=== PATIENT | female | born 1935 | race Caucasian/White ===

== ENCOUNTER 2018-02-07 15:23 | Emergency (ER) | payer MEDICARE, OTHER ==
[2018-02-07] MEDS ORDERED: NS 0.9% 1000 ML* 1,000 ML IV SCH (16:15)
--- NOTE | 2018-02-07 16:49 | RAD ---
INDICATION: Hypertension COMPARISON: November 08, 2016 TECHNIQUE: An AP portable view obtained at 1635 hours is submitted. FINDINGS: Bones/Soft Tissues: There are no acute bony findings. There is sternotomy Cardiomediastinal: The cardiomediastinal silhouette is normal. Lungs: There is hyperinflation with chronic interstitial change. Pleura: There are no pleural effusions. Other: None IMPRESSION: HYPERINFLATION WITH CHRONIC INTERSTITIAL CHANGE
[2018-02-07 16:56] LABS: ABS Basophils 0 10^3/ul (0-0.2); ABS Eosinophils 0.2 10^3/ul (0-0.6); ABS Lymphocytes 1.4 10^3/ul (1.0-4.8); ABS Monocytes 0.6 10^3/ul (0-0.8); ABS Neutrophils 3.6 10^3/ul (1.5-7.7); ABS Nucleated RBC 0 10^3/ul; Eosinophil % 3.7 % (0-6); Hematocrit 32 % (35-47); Hemoglobin 10.9 g/dl (12.0-16.0); Lymphocyte % 23.4 % (25-47); Mean Corpuscular HGB Conc 34 g/dl (31-36); Mean Corpuscular Hemoglobin 35 pg (27-31); Mean Corpuscular Volume 102 fL (80-97); Nucleated Red Blood Cells % 0.1; Platelet Count 199 10^3/ul (150-450); Red Blood Count 3.15 10^6/ul (4.0-5.4); Red Cell Distribution Width 13 % (10.5-15); White Blood Count 5.9 10^3/ul (3.5-10.8)
[2018-02-07 17:07] LABS: INR 0.91 (0.77-1.02)
[2018-02-07 17:23] LABS: EGFR Non-African American 70.7 (>60)
--- NOTE | 2018-02-07 18:46 | ED ---
Boby Meza Jennifer, scribed for Wallace Rodriguez MD on 02/07/18 at 1650 . Hypertension - HPI Summary HPI Summary: The patient is an 82 y/o F who was recommended to the ED by her academic coach for headache and hypertension that began two hours ago. The patient states she was shopping when she felt a sudden onset headache that began from her eyes and radiated backwards into her skull. She describes the pain as aching and felt sick all over. She rates the pain as an 8/10 at its worst and states it lasted about 1.5 hours. The patient was accompanied by her friend who is a nurse and checked her blood pressure to find out it was uncharacteristically high. The patient additionally complains of blurry vision. She denies nausea, abdominal pain, and photophobia. - History of Current Complaint Chief Complaint: EDHypertension Stated Complaint: HEADACHE AND HIGH BLOOD PRESSURE PER HOME CHECK Time Seen by Provider: 02/07/18 16:43 Hx Obtained From: Patient Onset/Duration: Started Hours Ago - 2 hours, Resolved - Headache lasted 1.5 hours Timing: Constant Aggravating Factor(s): Nothing Alleviating Factor(s): Nothing Associated Signs & Symptoms: Other: - headache radiating from eyes to back of skull, high blood pressure, blurry vision. NEGATIVE: nausea, photophobia, abdominal pain - Allergies/Home Medications Allergies/Adverse Reactions: Allergies Allergy/AdvReac Type Severity Reaction Status Date / Time MS Lactose [Lactose] Allergy Unknown Unknown Verified 02/07/18 15:28 Reaction Details MS Pineapple [Pineapple] Allergy Unknown Unknown Verified 02/07/18 15:28 Reaction Details cactus Allergy Unknown Unknown Uncoded 02/07/18 15:28 Reaction Details potato Allergy Unknown Unknown Uncoded 02/07/18 15:28 Reaction Details Home Medications: Home Medications Aspirin EC TAB* [Ecotrin EC Low Dose 81 MG*] 81 mg PO DAILY 02/07/18 [History Confirmed 02/07/18] Cyclosporine 0.05% OPHTH (NF) [Restasis 0.05% OPHTH] 1 drop BOTH EYES DAILY [History Confirmed 02/07/18] Magnesium [Magnesium Elemental] 30 mg PO DAILY 02/07/18 [History Confirmed 02/07] Metoprolol Tartrate TAB* [Lopressor TAB*] 12.5 mg PO BID 02/07/18 [History Confirmed 02/07/18] Solifenacin(NF) [Vesicare(NF)] 5 mg PO MOWEFR 02/07/18 [History Confirmed ] Temazepam CAP* [Restoril CAP*] 15 mg PO MOWEFR 02/07/18 [History Confirmed 02/07] PMH/Surg Hx/FS Hx/Imm Hx Endocrine/Hematology History: Denies: Hx Diabetes Cardiovascular History: Reports: Hx Angina, Hx Hypercholesterolemia, Hx Valvular Heart Disease, Other Cardiovascular Problems/Disorders - recent dx afib Denies: Hx Coronary Artery Disease, Hx Hypertension, Hx Myocardial Infarction Respiratory History: Reports: Hx Sleep Apnea - current CPAP user, compliant Denies: Hx Asthma, Hx Chronic Obstructive Pulmonary Disease (COPD) History: Reports: Other Problems/Disorders - overactive bladder, on vesicare Musculoskeletal History: Reports: Hx Orthopedic Injury - rt ankle hx of simple fx with tx cast, Hx Osteoporosis Denies: Other Musculoskeletal History Sensory History: Reports: Hx Contacts or Glasses - with patient, Hx Hearing Aid - sent home with s/o. 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 - Surgical History Surgery Procedure, Year, and Place: 1955 [facility]- tonsils. [place] [facility] [place] breast [place]/ cyst removal. 2001 [place], [place]- basal cell carcinoma. 2011 [place] - benign lesion removal Hx Anesthesia Reactions: No - Immunization History Date of Tetanus Vaccine: UTD Date of Influenza Vaccine: NONE Infectious Disease History: No Infectious Disease History: Denies: Hx Shingles, Traveled Outside the [place] in Last 30 Days - Family History Known Family History: Negative: Renal Disease - Social History Alcohol Use: None Hx Substance Use: No Substance Use Type: Reports: None Hx Tobacco Use: No Smoking Status (MU): Never Smoked Tobacco Review of Systems Positive: Blurred Vision Positive: Other - Hypertension Negative: Abdominal Pain, Nausea Positive: Headache - radiating from eyes to back of skull All Other Systems Reviewed And Are Negative: Yes Physical Exam - Summary Physical Exam Summary: General: well-appearing, no pain distress Skin: warm, color reflects adequate perfusion, dry Head: normal Eyes: EOMI, MICHELLE ENT: normal Neck: supple, nontender Respiratory: CTA, breath sounds present Cardiovascular: RRR Abdomen: soft, nontender Bowel: present Musculoskeletal: normal, strength/ROM intact Neurological: sensory/motor intact, A&O x3 Psychological: affect/mood appropriate Triage Information Reviewed: Yes Vital Signs On Initial Exam: Initial Vitals Temp Pulse Resp BP Pulse Ox 98.1 F 76 16 157/94 99 02/07/18 15:28 02/07/18 15:28 02/07/18 15:28 02/07/18 15:28 02/07/18 15:28 Vital Signs Reviewed: Yes Diagnostics - Vital Signs Vital Signs Temp Pulse Resp BP Pulse Ox 02/07/18 15:28 98.1 F 76 16 157/94 99 - Laboratory Lab Results: Lab Results 02/07/18 02/07/18 02/07/18 Range/Units 16:46 16:46 16:46 WBC 5.9 (3.5-10.8) 10^3/ul RBC 3.15 L (4.0-5.4) 10^6/ul Hgb 10.9 L (12.0-16.0) g/dl Hct 32 L (35-47) % MCV 102 H (80-97) fL MCH 35 H (27-31) pg MCHC 34 (31-36) g/dl RDW 13 (10.5-15) % Plt Count 199 (150-450) 10^3/ul MPV 8.0 (7.4-10.4) um3 Neut % (Auto) 61.2 (38-83) % Lymph % (Auto) 23.4 L (25-47) % [place] % (Auto) 10.9 H (0-7) % Eos % (Auto) 3.7 (0-6) % Baso % (Auto) 0.8 (0-2) % Absolute Neuts (auto) 3.6 (1.5-7.7) 10^3/ul Absolute Lymphs (auto) 1.4 (1.0-4.8) 10^3/ul Absolute Monos (auto) 0.6 (0-0.8) 10^3/ul Absolute Eos (auto) 0.2 (0-0.6) 10^3/ul Absolute Basos (auto) 0 (0-0.2) 10^3/ul Absolute Nucleated RBC 0 10^3/ul Nucleated RBC % 0.1 INR (Anticoag Therapy) 0.91 (0.77-1.02) APTT 29.6 (26.0-36.3) seconds Sodium 138 L (139-145) mmol/L Potassium 3.8 (3.5-5.0) mmol/L Chloride 103 (101-111) mmol/L Carbon Dioxide 27 (22-32) mmol/L Anion Gap 8 (2-11) mmol/L BUN 20 (6-24) mg/dL Creatinine 0.78 (0.51-0.95) mg/dL Est GFR ( Amer) 90.9 (>60) Est GFR (Non-Af Amer) 70.7 (>60) BUN/Creatinine Ratio 25.6 H (8-20) Glucose 92 (70-100) mg/dL Lactic Acid (0.5-2.0) mmol/L Calcium 9.0 (8.6-10.3) mg/dL Magnesium 2.1 (1.9-2.7) mg/dL Total Bilirubin 0.40 (0.2-1.0) mg/dL AST 24 (13-39) U/L ALT 20 (7-52) U/L Alkaline Phosphatase 24 L (34-104) U/L Total Creatine Kinase 106 (10-223) U/L CK-MB (CK-2) 4.2 (0.6-6.3) ng/mL Troponin I 0.00 (<0.04) ng/mL C-Reactive Protein 3.03 (< 5.00) mg/L B-Natriuretic Peptide ( - 100) pg/mL Total Protein 6.1 L (6.4-8.9) g/dL Albumin 3.8 (3.2-5.2) g/dL Globulin 2.3 (2-4) g/dL Albumin/Globulin Ratio 1.7 (1-3) Lipase 22 (11.0-82.0) U/L TSH 2.99 (0.34-5.60) mcIU/mL 02/07/18 02/07/18 Range/Units 16:46 16:46 WBC (3.5-10.8) 10^3/ul RBC (4.0-5.4) 10^6/ul Hgb (12.0-16.0) g/dl Hct (35-47) % MCV (80-97) fL MCH (27-31) pg MCHC (31-36) g/dl RDW (10.5-15) % Plt Count (150-450) 10^3/ul MPV (7.4-10.4) um3 Neut % (Auto) (38-83) % Lymph % (Auto) (25-47) % [place] % (Auto) (0-7) % Eos % (Auto) (0-6) % Baso % (Auto) (0-2) % Absolute Neuts (auto) (1.5-7.7) 10^3/ul Absolute Lymphs (auto) (1.0-4.8) 10^3/ul Absolute Monos (auto) (0-0.8) 10^3/ul Absolute Eos (auto) (0-0.6) 10^3/ul Absolute Basos (auto) (0-0.2) 10^3/ul Absolute Nucleated RBC 10^3/ul Nucleated RBC % INR (Anticoag Therapy) (0.77-1.02) APTT (26.0-36.3) seconds Sodium (139-145) mmol/L Potassium (3.5-5.0) mmol/L Chloride (101-111) mmol/L Carbon Dioxide (22-32) mmol/L Anion Gap (2-11) mmol/L BUN (6-24) mg/dL Creatinine (0.51-0.95) mg/dL Est GFR ( Amer) (>60) Est GFR (Non-Af Amer) (>60) BUN/Creatinine Ratio (8-20) Glucose (70-100) mg/dL Lactic Acid 0.5 (0.5-2.0) mmol/L Calcium (8.6-10.3) mg/dL Magnesium (1.9-2.7) mg/dL Total Bilirubin (0.2-1.0) mg/dL AST (13-39) U/L ALT (7-52) U/L Alkaline Phosphatase (34-104) U/L Total Creatine Kinase (10-223) U/L CK-MB (CK-2) (0.6-6.3) ng/mL Troponin I (<0.04) ng/mL C-Reactive Protein (< 5.00) mg/L B-Natriuretic Peptide 187 H ( - 100) pg/mL Total Protein (6.4-8.9) g/dL Albumin (3.2-5.2) g/dL Globulin (2-4) g/dL Albumin/Globulin Ratio (1-3) Lipase (11.0-82.0) U/L TSH (0.34-5.60) mcIU/mL Result Diagrams: 02/07/18 16:46 02/07/18 16:46 Lab Statement: Any lab studies that have been ordered have been reviewed, and results considered in the medical decision making process. - Radiology CXR Xray Interpretation: Positive (See Comments) - HYPERINFLATION WITH CHRONIC INTERSTITIAL CHANGE. Dr. Rodriguez has reviewed this report. Radiology Interpretation Completed By: Radiologist - EKG 1616 Cardiac Rate: NL EKG Rhythm: Sinus Rhythm - [address] Segment: Non-Specific - Flipped T in V3 Ectopy: None EKG Interpretation: RBBB Re-Evaluation - Re-Evaluation First Eval Re-Evaluation Time: 16:54 Change: Unchanged Comment: The patient declined CT Head. Hypertension Course/Dx - Course Course Of Treatment: FORD GONE IN THE ED. BP IMPROVED. I PLANNED ON A HEAD CT; THE PATIENT DECLINED. DISCUSSED RESULTS WITHTHE PATIENT. F/U PMD; RETURN IF WORSE. - Diagnoses Provider Diagnoses: Headache, Hypertension Discharge - Sign-Out/Discharge Documenting (check all that apply): Discharge/Admit/Transfer - Discharge Plan Condition: Stable Disposition: HOME Patient Education Materials: Acute Headache (ED), Hypertension (ED) Referrals: Darrian Rodriguez MD [Primary Care Provider] - Additional Instructions: FOLLOW UP WITH YOUR DOCTOR. RETURN TO THE EMERGENCY DEPARTMENT FOR ANY WORSENING OF YOUR CONDITION; HEADACHE , WEAKNESS, YOU FEEL ILL OR QUESTIONS OR CONCERNS. - Billing Disposition and Condition Condition: STABLE Disposition: HOME The documentation as recorded by the Boby gaitan Jennifer accurately reflects the service I personally performed and the decisions made by me, Wallace Rodriguez MD.
[2018-02-07 19:27] VITALS: BP 127/74
== END 2018-02-07 19:28 | disposition home or self-care (01) ==
LOC: ED 15:23
DX: R51 Headache (principal); I10 Essential (primary) hypertension; Z79.82 Long term (current) use of aspirin; E78.00 Pure hypercholesterolemia, unspecified; I48.91 Unspecified atrial fibrillation; Z85.828 Personal history of other malignant neoplasm of skin; G47.30 Sleep apnea, unspecified; I45.10 Unspecified right bundle-branch block; R94.31 Abnormal electrocardiogram [ECG] [EKG]
CPT/HCPCS: 36415; 71045; 80053; 82550; 82553; 83605; 83690; 83735; 83880; 84443; 84484; 85025; 85610; 85730; 86140; 93005; 99283

== ENCOUNTER 2024-03-10 16:01 | Observation (INO) ==
[2024-03-10 23:06] LABS: ABS Lymphocytes 0.5 10^3/uL (1.0-4.8); ABS Monocytes 0.1 10^3/uL (0.0-0.9); ABS Neutrophils 6.3 10^3/uL (1.5-7.6); Eosinophil % 0.2 %; Hematocrit 34.4 % (35-45); Hemoglobin 11.9 g/dL (11.5-14.3); Lymphocyte % 7.3 %; Mean Corpuscular Hemoglobin 35.4 pg (27-33); Mean Corpuscular Hgb Conc 34.5 g/dL (31-36); Mean Corpuscular Volume 102.4 fL (80-97); Mean Platelet Volume 8.1 fL (7.5-11.2); Platelet Count 180 10^3/uL (150-450); Red Blood Count 3.36 10^6/uL (3.63-4.92); Red Cell Distribution Width 13.5 % (12-17); White Blood Count 6.9 10^3/uL (3.8-11.8)
[2024-03-11 00:12] LABS: Creatinine, Serum 0.9 mg/dL (0.51-0.95); Potassium 3.6 mmol/L (3.5-5.0); eGFR CKD-EPI 61.1 (>60)
[2024-03-11] MEDS ORDERED: Morphine 2 MG/ML SYRINGE IV PRN ×2 (02:27)
[2024-03-11] MEDS: Enoxaparin 40 MG/0.4 ML SYR SUBCUT SCH (04:08)
[2024-03-11 06:11] LABS: ABS Lymphocytes 0.6 10^3/uL (1.0-4.8); ABS Monocytes 0.1 10^3/uL (0.0-0.9); ABS Neutrophils 3.2 10^3/uL (1.5-7.6); Hematocrit 33.8 % (35-45); Hemoglobin 11.6 g/dL (11.5-14.3); Lymphocyte % 15.9 %; Mean Corpuscular Hemoglobin 35.1 pg (27-33); Mean Corpuscular Hgb Conc 34.3 g/dL (31-36); Mean Corpuscular Volume 102.3 fL (80-97); Mean Platelet Volume 8.2 fL (7.5-11.2); Nucleated Red Blood Cells % 0.1 %/100WBC (0.0-0.8); Platelet Count 175 10^3/uL (150-450); Red Cell Distribution Width 13.4 % (12-17); White Blood Count 3.9 10^3/uL (3.8-11.8)
[2024-03-11 06:56] LABS: Calcium 8.9 mg/dL (8.6-10.3); Creatinine, Serum 0.74 mg/dL (0.51-0.95); Magnesium 2.2 mg/dL (1.9-2.7); Potassium 3.5 mmol/L (3.5-5.0); eGFR CKD-EPI 77.3 (>60)
[2024-03-11] MEDS: Aspirin EC 81 mg TAB.EC (enteric coated) PO SCH (07:50)
[2024-03-12 11:26] VITALS: BP 128/83
== END 2024-03-12 12:15 | disposition short-term general hospital (02) ==
LOC: ED 16:01 → EDHOLD 16:01 → SUATTDRO 23:02 → MEDTELE 03-11 08:49
PROVIDERS: ADMIT Student in an Organized Health Care Education/Training Program; ATTEND Hospitalist

== ENCOUNTER 2024-09-09 19:42 | Observation (INO) ==
[2024-09-09 20:45] LABS: ABS Eosinophils 0.2 10^3/uL (0.0-0.5); ABS Lymphocytes 1.3 10^3/uL (1.0-4.8); ABS Monocytes 0.6 10^3/uL (0.0-0.9); ABS Neutrophils 3.1 10^3/uL (1.5-7.6); Eosinophil % 3.4 %; Hemoglobin 11.2 g/dL (11.5-14.3); Lymphocyte % 25.2 %; Mean Corpuscular Hgb Conc 34.8 g/dL (31-36); Mean Corpuscular Volume 103.6 fL (80-97); Mean Platelet Volume 8.1 fL (7.5-11.2); Platelet Count 175 10^3/uL (150-450); Red Blood Count 3.09 10^6/uL (3.63-4.92); Red Cell Distribution Width 13.6 % (12-17); White Blood Count 5.2 10^3/uL (3.8-11.8)
[2024-09-09 21:11] LABS: High Sens Troponin Baseline 9 pg/mL (<15)
[2024-09-09 21:12] LABS: ALT 19 U/L (7-52); AST 18 U/L (13-39); Albumin/Globulin Ratio 2.2 (1-3); Alkaline Phosphatase 28 U/L (35-149); Anion Gap 2 mmol/L (2-16); Blood Urea Nitrogen 28 mg/dL (6-24); CO2 Carbon Dioxide 32 mmol/L (22-32); Calcium 9.7 mg/dL (8.6-10.3); Chloride 105 mmol/L (101-111); Cholesterol 204 mg/dL; Creatinine, Serum 0.71 mg/dL (0.51-0.95); Globulin 1.8 g/dL (2-4); Glucose 93 mg/dL (70-100); HDL Cholesterol 75.1 mg/dL; LDL Cholesterol 114 mg/dL; Potassium 4.2 mmol/L (3.5-5.0); Sodium 139 mmol/L (135-145); Total Bilirubin 0.5 mg/dL (0.2-1.0); Total Protein 5.8 g/dL (6.4-8.9); Triglycerides 75 mg/dL; eGFR CKD-EPI 81.2 (>60)
[2024-09-09] MEDS: Iohexol 350 (CONTRAST) 500 ML MDV IV ONE (21:32)
[2024-09-09 22:01] LABS: High Sensitivity Troponin 1 Hr 6 pg/mL (<15)
[2024-09-09 22:51] LABS: Urine Appearance Clear; Urine Bilirubin Negative (Negative); Urine Blood Negative (Negative); Urine Color Light-Yellow; Urine Glucose 4+ (>=1000 mg/dL) (Negative); Urine Ketones Negative (Negative); Urine Nitrite Negative (Negative); Urine Protein Negative (Negative); Urine Specific Gravity 1.019 (1.002-1.030); Urine Urobilinogen Negative (Negative)
[2024-09-10 02:30] LABS: Folate > 20.00 ng/mL (5.90-24.80)
[2024-09-10 02:31] LABS: Vitamin B12 628 pg/mL (180-914)
[2024-09-10] MEDS ORDERED: LACTATED RINGERS 1000 ML BAG IV ONE (03:00)
[2024-09-10] MEDS ORDERED: Sulfur Hexaflouride MICROSPHR 25 MG VIAL IV PRN (05:15)
[2024-09-10 09:53] VITALS: BP 150/82
[2024-09-10] MEDS: Aspirin EC 81 mg TAB.EC (enteric coated) PO SCH (09:59)
[2024-09-10] MEDS: [UNRECOGNIZED DRUG - REMARK] PO SCH (10:27)
== END 2024-09-10 16:07 | disposition home or self-care (01) ==
LOC: EDHOLD 19:42 → ED 19:42 → SUATTDRO 09-10 01:37 → MEDTELE 09-10 05:39
PROVIDERS: ADMIT Student in an Organized Health Care Education/Training Program; ATTEND Student in an Organized Health Care Education/Training Program